=== PATIENT | male | born 1945 | race Caucasian/White ===

== ENCOUNTER 2020-08-12 13:53 | Emergency (ER) | payer BC, OTHER ==
[~2020-08-12] VITALS: Ht 177.8 cm; Wt 79.4 kg
--- NOTE | 2020-08-12 14:02 | NUR ---
came in for right thigh pain s/p R TKA 2 months ago, 10/10 pain scale, concerned of possible clot. to ER bed 4, hooked to monitor. changed to hosp gown. awaiting MD johnson
--- NOTE | 2020-08-12 14:04 | NUR ---
Dr Luu at bedside
[2020-08-12] MEDS ORDERED: IBUP-1957 PO (14:38)
[2020-08-12] MEDS ORDERED: HYDR-3980 MT (14:38)
--- NOTE | 2020-08-12 16:34 | NUR ---
Patient discharged to home in stable condition. Written and verbal after care instructions given. Patient verbalizes understanding of instruction.
[2020-08-12 16:39] VITALS: BP 154/69
== END 2020-08-12 16:35 | disposition home or self-care (01) ==
LOC: ER 13:58
DX: M79.651 Pain in right thigh (principal); Z96.651 Presence of right artificial knee joint
CPT/HCPCS: 73552; 93971-TC

== ENCOUNTER 2023-08-29 13:52 | Emergency (ER) | payer OTHER ==
[~2023-08-29] VITALS: Ht 177.8 cm; Wt 79.8 kg
[~2023-08-29 13:52] MED LIST: HYDR-3980 MT; IBUP-1957 PO
[2023-08-29] MEDS: IV NS 0.9% 1,000 ML BAG IV ONE ×2 (15:23→15:28)
[2023-08-29 15:29] LABS: BASOPHILS # (AUTO) 0.2 K/uL (0.0-0.2); BASOPHILS % (AUTO) 3.3 % (0.0-2.0); EOSINOPHILS # (AUTO) 0.1 K/uL (0.0-0.7); EOSINOPHILS % (AUTO) 1.7 % (0.0-6.0); HEMATOCRIT 41 % (39-51); HEMOGLOBIN 13.7 g/dL (13.5-17.5); LYMPHOCYTES # (AUTO) 1.4 K/uL (0.8-4.8); LYMPHOCYTES % (AUTO) 20.3 % (20.0-44.0); MEAN CORPUSCULAR HEMOGLOBIN 31 PG (26.0-33.0); MEAN CORPUSCULAR HGB CONC 33 g/dl (31.0-36.0); MEAN CORPUSCULAR VOLUME 92 fL (80-96); MONOCYTES # (AUTO) 0.5 K/uL (0.1-1.30); MONOCYTES % (AUTO) 6.9 % (2.0-12.0); NEUTROPHILS # (AUTO) 4.6 K/uL (1.8-8.9); NEUTROPHILS % (AUTO) 67.8 % (43.0-81.0); PLATELET COUNT (AUTO) 205 K/uL (150-450); RED BLOOD CELL COUNT(AUTO) 4.48 MIL/uL (4.5-6.0); RED CELL DISTRIBUTION WIDTH 13.6 % (11.5-15.0); WHITE BLOOD COUNT (AUTO) 6.7 K/uL (4.3-11.0)
[2023-08-29 15:45] LABS: CALCIUM, SERUM 8.8 mg/dL (8.5-10.1); CARBON DIOXIDE 27 mmol/L (21-32); CHLORIDE 102 mmol/L (98-107); GLUCOSE 154 mg/dL (74-106); POTASSIUM 3.8 mmol/L (3.5-5.1); SODIUM SERUM 136 mmol/L (136-145); UREA NITROGEN, BLOOD 20 mg/dL (7-18)
[2023-08-29 15:48] LABS: INR 1.02 (0.91-1.10); PARTIAL THROMBOPLASTIN TIME 23.6 SEC (24.3-34.3); PROTHROMBIN TIME 10.5 SECS (9.2-11.1)
[2023-08-29 15:50] LABS: ALANINE AMINOTRANSFERASE 27 U/L (12-78); ALBUMIN 3.4 g/dL (3.4-5.0); ALKALINE PHOSPHATASE 77 U/L (46-116); ASPARTATE AMINOTRANSFERASE 20 U/L (15-37); BILIRUBIN,DIRECT 0.1 mg/dL (0.0-0.2); BILIRUBIN,TOTAL 0.4 mg/dL (0.2-1.0); LIPASE 75 U/L (16-77)
[2023-08-29] MEDS ORDERED: IOHEXOL-300 100 ML VIAL IV ONE (15:54)
[2023-08-29] MEDS ORDERED: CT SWABBABLE VALVE TRANS SET 1 EA INFUS.SET MC ONE (15:55)
[2023-08-29] MEDS ORDERED: IV NS 0.9% 250 ML IV ONE (15:56)
[2023-08-29] MEDS ORDERED: POLY119P3 PO (17:40)
[2023-08-29 18:57] VITALS: BP 125/68; TEMP 98.5; O2SAT 97
== END 2023-08-29 18:58 | disposition home or self-care (01) ==
LOC: ER 13:52
DX: K59.00 Constipation, unspecified (principal); E86.0 Dehydration; Z79.899 Other long term (current) drug therapy
CPT/HCPCS: 99285; 74177; 96360; 93005; 85025; 80048; 83690; 80076; 36415; 85730; J7030; J7050; Q9967

== ENCOUNTER 2023-12-30 14:13 | Inpatient (IN) | payer MEDICARE, MEDICAID ==
[~2023-12-30] VITALS: Ht 177.8 cm; Wt 78.9 kg
[~2023-12-30 14:13] MED LIST changes: +POLY119P3 PO
[2023-12-30 15:27] LABS: BASOPHILS % (AUTO) 0.2 % (0.0-2.0); EOSINOPHILS % (AUTO) 0.2 % (0.0-6.0); HEMATOCRIT 29 % (39-51); HEMOGLOBIN 9.6 g/dL (13.5-17.5); LYMPHOCYTES % (AUTO) 9.1 % (20.0-44.0); MEAN CORPUSCULAR HEMOGLOBIN 28 PG (26.0-33.0); MEAN CORPUSCULAR HGB CONC 33 g/dl (31.0-36.0); MEAN CORPUSCULAR VOLUME 84 fL (80-96); MONOCYTES # (AUTO) 0.8 K/uL (0.1-1.30); MONOCYTES % (AUTO) 7.9 % (2.0-12.0); NEUTROPHILS # (AUTO) 8.8 K/uL (1.8-8.9); NEUTROPHILS % (AUTO) 82.6 % (43.0-81.0); PLATELET COUNT (AUTO) 230 K/uL (150-450); RED BLOOD CELL COUNT(AUTO) 3.41 MIL/uL (4.5-6.0); RED CELL DISTRIBUTION WIDTH 14.5 % (11.5-15.0); WHITE BLOOD COUNT (AUTO) 10.6 K/uL (4.3-11.0)
[2023-12-30 15:41] LABS: SERUM AMMONIA 20 umol/L (11-32)
[2023-12-30] MEDS ORDERED: IOHEXOL-350 100 ML VIAL IV ONE (15:41)
[2023-12-30] MEDS ORDERED: CT SWABBABLE VALVE TRANS SET 1 EA INFUS.SET MC ONE (15:41)
[2023-12-30 15:42] LABS: INR 1.18 (0.91-1.10); PARTIAL THROMBOPLASTIN TIME 27.1 SEC (24.3-34.3); PROTHROMBIN TIME 12.4 SECS (9.2-11.1)
[2023-12-30] MEDS ORDERED: IV NS 0.9% 250 ML IV ONE (15:42)
[2023-12-30 15:46] LABS: ALANINE AMINOTRANSFERASE 38 U/L (12-78); ALBUMIN 2.7 g/dL (3.4-5.0); ALCOHOL, BLOOD < 3 mg/dL (0-10); ALKALINE PHOSPHATASE 67 U/L (46-116); ASPARTATE AMINOTRANSFERASE 27 U/L (15-37); BILIRUBIN,DIRECT 0.2 mg/dL (0.0-0.2); BILIRUBIN,TOTAL 0.6 mg/dL (0.2-1.0); CALCIUM, SERUM 7.8 mg/dL (8.5-10.1); CARBON DIOXIDE 22 mmol/L (21-32); CREATININE 0.8 mg/dL (0.6-1.3); GLUCOSE 193 mg/dL (74-106); POTASSIUM 3.9 mmol/L (3.5-5.1); TOTAL PROTEIN, SERUM 5.9 g/dL (6.4-8.2); UREA NITROGEN, BLOOD 12 mg/dL (7-18)
[2023-12-30 15:47] LABS: SODIUM SERUM 119 mmol/L (136-145)
[2023-12-30 15:48] LABS: CHLORIDE 87 mmol/L (98-107); SALICYLATE 0.4 mg/dL (2.8-20.0)
[2023-12-30] MEDS ORDERED: TAMS-12 PO (15:57)
[2023-12-30] MEDS ORDERED: FLUO30CR50 TP (15:57)
[2023-12-30] MEDS ORDERED: LOSA50TA39 PO (15:57)
[2023-12-30] MEDS ORDERED: METF-442 PO (15:57)
[2023-12-30] MEDS ORDERED: ESCI10TA PO (15:57)
[2023-12-30] MEDS ORDERED: LORA-259 PO (15:57)
[2023-12-30] MEDS ORDERED: SITA25TA PO (15:57)
[2023-12-30] MEDS ORDERED: MEMA21CA2 PO (15:57)
[2023-12-30] MEDS ORDERED: DONE5TAB34 PO (15:57)
[2023-12-30] MEDS ORDERED: CLOP75TA15 PO (15:57)
[2023-12-30] MEDS: IV NS 0.9% 1,000 ML IV ONE (16:22)
[2023-12-30 17:34] LABS: AMPHETAMINE, URINE NEGATIVE (NEGATIVE); APPEARANCE,URINE Clear (CLEAR); BARBITURATE, URINE NEGATIVE (NEGATIVE); BENZODIAZEPINE, URINE NEGATIVE (NEGATIVE); BILIRUBIN,URINE Negative (NEGATIVE); BLOOD, URINE Negative Ery/uL (NEGATIVE); CANNABINOID, URINE NEGATIVE (NEGATIVE); COCCAINE, URINE NEGATIVE (NEGATIVE); COLOR,URINE YELLOW (YELLOW); KETONES,URINE Negative (NEGATIVE); LEUKOCYTE ESTERASE ,URINE Negative (NEGATIVE); NITRITE, URINE Negative (NEGATIVE); OPIATE, URINE NEGATIVE (NEGATIVE); PH,URINE 5.5 (5.0-8.0); PHENCYCLIDINE SCREEN,URINE NEGATIVE (NEGATIVE); PROTEIN,URINE Negative (NEGATIVE); UGLUCOSE 100 MG/DL mg/dL (NEGATIVE); UROBILINOGEN,URINE 0.2 EU/dL (0.2)
[2023-12-30] MEDS ORDERED: MAGNESIUM HYDROXIDE 30 ML UDC PO PRN (19:30)
[2023-12-30] MEDS ORDERED: ACETAMINOPHEN 325 MG TABLET PO PRN (19:30)
[2023-12-30] MEDS ORDERED: ONDANSETRON HCL/PF 4 MG/2 ML VIAL IVP PRN (19:30)
[2023-12-30] MEDS ORDERED: Z GUARD REMEDY 4 OZ OINT TP PRN (19:30)
[2023-12-30] MEDS ORDERED: LORAZEPAM 1 MG TABLET PO PRN (21:30)
[2023-12-30 21:31] LABS: ALANINE AMINOTRANSFERASE 42 U/L (12-78); ALBUMIN 2.7 g/dL (3.4-5.0); ALKALINE PHOSPHATASE 62 U/L (46-116); ASPARTATE AMINOTRANSFERASE 28 U/L (15-37); BILIRUBIN,TOTAL 0.5 mg/dL (0.2-1.0); CALCIUM, SERUM 7.9 mg/dL (8.5-10.1); CARBON DIOXIDE 29 mmol/L (21-32); CHLORIDE 94 mmol/L (98-107); CREATININE 0.8 mg/dL (0.6-1.3); GLUCOSE 177 mg/dL (74-106); POTASSIUM 4.2 mmol/L (3.5-5.1); SODIUM SERUM 127 mmol/L (136-145); UREA NITROGEN, BLOOD 13 mg/dL (7-18)
[2023-12-30 21:42] LABS: TOTAL PROTEIN, SERUM 6.1 g/dL (6.4-8.2)
[2023-12-30] MEDS: ENOXAPARIN SODIUM 40 MG/0.4 ML DISP.SYRIN SQ SCH (22:12)
[2023-12-31] VITALS: BP 139/67; TEMP 97.8; O2SAT 97
[2023-12-31 04:00] VITALS: BP 152/64; TEMP 97.9; O2SAT 98
[2023-12-31 08:00] VITALS: BP 159/71; TEMP 98.4; O2SAT 98
[2023-12-31 08:06] LABS: BASOPHILS % (AUTO) 0.1 % (0.0-2.0); EOSINOPHILS % (AUTO) 0.1 % (0.0-6.0); HEMATOCRIT 35 % (39-51); HEMOGLOBIN 11.7 g/dL (13.5-17.5); LYMPHOCYTES # (AUTO) 0.9 K/uL (0.8-4.8); LYMPHOCYTES % (AUTO) 10.7 % (20.0-44.0); MEAN CORPUSCULAR HEMOGLOBIN 28 PG (26.0-33.0); MEAN CORPUSCULAR HGB CONC 33 g/dl (31.0-36.0); MEAN CORPUSCULAR VOLUME 85 fL (80-96); MONOCYTES # (AUTO) 0.8 K/uL (0.1-1.30); MONOCYTES % (AUTO) 9.7 % (2.0-12.0); NEUTROPHILS # (AUTO) 6.3 K/uL (1.8-8.9); NEUTROPHILS % (AUTO) 79.4 % (43.0-81.0); PLATELET COUNT (AUTO) 299 K/uL (150-450); RED BLOOD CELL COUNT(AUTO) 4.16 MIL/uL (4.5-6.0); RED CELL DISTRIBUTION WIDTH 14.4 % (11.5-15.0)
[2023-12-31 08:10] LABS: CALCIUM, SERUM 8.9 mg/dL (8.5-10.1); CARBON DIOXIDE 25 mmol/L (21-32); CHLORIDE 101 mmol/L (98-107); CREATININE 0.9 mg/dL (0.6-1.3); GLUCOSE 183 mg/dL (74-106); MAGNESIUM 2.3 mg/dL (1.8-2.4); PHOSPHORUS 3.5 mg/dL (2.5-4.9); POTASSIUM 4.2 mmol/L (3.5-5.1); SODIUM SERUM 137 mmol/L (136-145); UREA NITROGEN, BLOOD 16 mg/dL (7-18)
[2023-12-31 08:41] VITALS: BP 159/71
[2023-12-31] MEDS: TAMSULOSIN 0.4 MG CAP.SR.24H PO SCH (08:41)
[2023-12-31] MEDS: CLOPIDOGREL BISULFATE 75 MG TABLET PO SCH (08:41)
[2023-12-31] MEDS: LOSARTAN POTASSIUM 50 MG TABLET PO SCH (08:41)
[2023-12-31] MEDS: MEMANTINE HCL 5 MG TABLET PO SCH (08:41)
[2023-12-31] MEDS: DONEPEZIL 5 MG TABLET PO SCH (08:42)
[2023-12-31] MEDS: LINAGLIPTIN 5 MG TABLET PO SCH (08:42)
== END 2023-12-31 12:39 | disposition home health service (06) | DRG 640 ==
LOC: ER 14:47 → TELE1 20:15 → MEDSG1 12-31 08:39
PROVIDERS: ADMIT Nurse Practitioner Family; ATTEND Nurse Practitioner Family
DX: E87.1 Hypo-osmolality and hyponatremia (principal); G93.41 Metabolic encephalopathy; E44.0 Moderate protein-calorie malnutrition; Z86.73 Personal history of transient ischemic attack (TIA), and cerebral infarction without residual deficits; D64.9 Anemia, unspecified; E86.1 Hypovolemia; Z79.84 Long term (current) use of oral hypoglycemic drugs; E88.09 Other disorders of plasma-protein metabolism, not elsewhere classified; Z87.891 Personal history of nicotine dependence; C61 Malignant neoplasm of prostate; F39 Unspecified mood [affective] disorder; Z96.651 Presence of right artificial knee joint; Z92.3 Personal history of irradiation; Z68.25 Body mass index [BMI] 25.0-25.9, adult
CPT/HCPCS: 36415; 70450-TC; 71045-TC; 80048-TC; 80053-TC; 80076-TC; 82140-TC; 83735-TC; 84100-TC; 84300-TC; 84443-TC; 84484-TC; 85025-TC; 85730-TC; 97110-TC; 97116-TC; 97530-TC; G0378; G0480; J1650; J7030; J7050; Q9967

== ENCOUNTER 2024-02-07 20:13 | Emergency (ER) | payer MEDICARE, MEDICAID ==
[~2024-02-07] VITALS: Ht 175.3 cm; Wt 74.8 kg
[~2024-02-07 20:13] MED LIST changes: +CLOP75TA15 PO; +DONE5TAB34 PO; +ESCI10TA PO; +FLUO30CR50 TP; -HYDR-3980 MT; -IBUP-1957 PO; +LORA-259 PO; +LOSA50TA39 PO; +MEMA21CA2 PO; +METF-442 PO; -POLY119P3 PO; +SITA25TA PO; +TAMS-12 PO
[2024-02-07 20:53] VITALS: BP 132/84; TEMP 98.5; O2SAT 99
== END 2024-02-07 21:55 | disposition left against medical advice (07) ==
LOC: ER 20:19
DX: S61.210A Laceration without foreign body of right index finger without damage to nail, initial encounter (principal); Z53.21 Procedure and treatment not carried out due to patient leaving prior to being seen by health care provider; Y92.89 Other specified places as the place of occurrence of the external cause

== ENCOUNTER 2024-04-19 15:00 | Inpatient (IN) | payer MEDICARE, OTHER ==
[~2024-04-19] VITALS: Ht 177.8 cm; Wt 78.5 kg
[2024-04-19 15:32] LABS: BASOPHILS % (AUTO) 0.6 % (0.0-2.0); EOSINOPHILS # (AUTO) 0.1 K/uL (0.0-0.7); EOSINOPHILS % (AUTO) 0.9 % (0.0-6.0); HEMATOCRIT 31 % (39-51); HEMOGLOBIN 9.6 g/dL (13.5-17.5); LYMPHOCYTES # (AUTO) 0.9 K/uL (0.8-4.8); LYMPHOCYTES % (AUTO) 14.2 % (20.0-44.0); MEAN CORPUSCULAR HEMOGLOBIN 24 PG (26.0-33.0); MEAN CORPUSCULAR HGB CONC 31 g/dl (31.0-36.0); MEAN CORPUSCULAR VOLUME 78 fL (80-96); MONOCYTES # (AUTO) 0.5 K/uL (0.1-1.30); MONOCYTES % (AUTO) 8.7 % (2.0-12.0); NEUTROPHILS # (AUTO) 4.5 K/uL (1.8-8.9); NEUTROPHILS % (AUTO) 75.6 % (43.0-81.0); PLATELET COUNT (AUTO) 221 K/uL (150-450); RED BLOOD CELL COUNT(AUTO) 3.95 MIL/uL (4.5-6.0); RED CELL DISTRIBUTION WIDTH 17.3 % (11.5-15.0)
[2024-04-19 15:40] LABS: CALCIUM, SERUM 8.7 mg/dL (8.5-10.1); CARBON DIOXIDE 26 mmol/L (21-32); CHLORIDE 102 mmol/L (98-107); GLUCOSE 265 mg/dL (74-106); SODIUM SERUM 135 mmol/L (136-145); UREA NITROGEN, BLOOD 12 mg/dL (7-18)
[2024-04-19] MEDS ORDERED: ATOR80TA PO (17:06)
[2024-04-19] MEDS ORDERED: Z GUARD REMEDY 4 OZ OINT TP PRN (19:30)
[2024-04-19] MEDS ORDERED: ACETAMINOPHEN 325 MG TABLET PO PRN (19:30)
[2024-04-19] MEDS ORDERED: MAGNESIUM HYDROXIDE 30 ML UDC PO PRN (19:30)
[2024-04-19 20:00] VITALS: BP 108/70; TEMP 97.5; O2SAT 100
[2024-04-19] MEDS ORDERED: INSULIN REGULAR, HUMAN 100 UNIT/ML 3 ML VIAL SQ SCH (22:00)
[2024-04-19] MEDS: BLOOD SUGAR DIAGNOSTIC 1 EACH STRIP IN SCH (22:19)
[2024-04-19] MEDS ORDERED: DEXTROSE 50%-WATER 50 ML DISP.SYRIN IV PRN (22:30)
[2024-04-19] MEDS: INSULIN REGULAR, HUMAN 100 UNIT/ML 3 ML VIAL SQ PRN (23:04)
[2024-04-20] VITALS: BP 159/59; TEMP 97.8; O2SAT 99
[2024-04-20 04:00] VITALS: BP 155/69; TEMP 98.1; O2SAT 99
[2024-04-20 07:21] LABS: CALCIUM, SERUM 8.6 mg/dL (8.5-10.1); CARBON DIOXIDE 27 mmol/L (21-32); CHLORIDE 104 mmol/L (98-107); GLUCOSE 160 mg/dL (74-106); MAGNESIUM 1.8 mg/dL (1.8-2.4); PHOSPHORUS 3.7 mg/dL (2.5-4.9); POTASSIUM 4.1 mmol/L (3.5-5.1); SODIUM SERUM 140 mmol/L (136-145); UREA NITROGEN, BLOOD 14 mg/dL (7-18)
[2024-04-20 07:23] LABS: BASOPHILS # (AUTO) 0.1 K/uL (0.0-0.2); BASOPHILS % (AUTO) 0.9 % (0.0-2.0); EOSINOPHILS # (AUTO) 0.2 K/uL (0.0-0.7); EOSINOPHILS % (AUTO) 2.7 % (0.0-6.0); HEMATOCRIT 31 % (39-51); HEMOGLOBIN 9.6 g/dL (13.5-17.5); LYMPHOCYTES # (AUTO) 1.1 K/uL (0.8-4.8); LYMPHOCYTES % (AUTO) 17.7 % (20.0-44.0); MEAN CORPUSCULAR HEMOGLOBIN 24 PG (26.0-33.0); MEAN CORPUSCULAR HGB CONC 31 g/dl (31.0-36.0); MEAN CORPUSCULAR VOLUME 77 fL (80-96); MONOCYTES # (AUTO) 0.7 K/uL (0.1-1.30); MONOCYTES % (AUTO) 11.4 % (2.0-12.0); NEUTROPHILS % (AUTO) 67.3 % (43.0-81.0); PLATELET COUNT (AUTO) 238 K/uL (150-450); RED BLOOD CELL COUNT(AUTO) 3.99 MIL/uL (4.5-6.0); RED CELL DISTRIBUTION WIDTH 17.7 % (11.5-15.0)
[2024-04-20] MEDS ORDERED: BLOOD SUGAR DIAGNOSTIC 1 EACH STRIP IN SCH (07:30)
[2024-04-20 07:53] LABS: CHOLESTEROL 157 mg/dL (<200); HDL CHOLESTEROL 55 mg/dL (40-60); LDL 87 mg/dL (0-99); TRIGLYCERIDES 97 mg/dL (30-150)
[2024-04-20 08:00] VITALS: BP 139/72; TEMP 98; O2SAT 98
[2024-04-20 08:24] LABS: ANISOCYTOSIS 1+
[2024-04-20] MEDS: PANTOPRAZOLE 40 MG TABLET.DR PO SCH (08:25)
[2024-04-20 10:16] LABS: FERRITIN 18 ng/mL (8-388)
[2024-04-20 10:39] LABS: IRON, SERUM 20 ug/dl (50-175); TOTAL IRON BINDING CAPACITY 389 ug/dl (250-450)
[2024-04-20] MEDS ORDERED: FLUOROURACIL TP PRN (11:30)
[2024-04-20] MEDS: LINAGLIPTIN 5 MG TABLET PO SCH (11:41)
[2024-04-20] MEDS: TAMSULOSIN 0.4 MG CAP.SR.24H PO SCH (11:41)
[2024-04-20] MEDS: CLOPIDOGREL BISULFATE 75 MG TABLET PO SCH (11:42)
[2024-04-20 12:00] VITALS: BP 136/71; TEMP 97.7; O2SAT 98
[2024-04-20] MEDS: LOSARTAN POTASSIUM 50 MG TABLET PO SCH (12:27)
[2024-04-20] MEDS: MEMANTINE HCL 5 MG TABLET PO SCH (12:41)
[2024-04-20] MEDS ORDERED: IOHEXOL-350 100 ML VIAL IV ONE (13:20)
[2024-04-20] MEDS ORDERED: CT SWABBABLE VALVE TRANS SET 1 EA INFUS.SET MC ONE (13:20)
[2024-04-20] MEDS ORDERED: IV NS 0.9% 250 ML IV ONE (13:22)
[2024-04-20] MEDS: SOD FERRIC GLUC 125 MG in IV NS 0.9% 100 ML IV SCH (13:50)
[2024-04-20] MEDS ORDERED: METOPROLOL TARTRATE INJ 5 MG/5 ML AMPUL IVP PRN (14:00)
[2024-04-20] MEDS: NITROGLYCERIN 0.4 MG/TAB BOTTLE SL ONE (14:14)
[2024-04-20] MEDS: ENOXAPARIN SODIUM 80 MG/0.8 ML DISP.SYRIN SQ SCH (15:00)
[2024-04-20 16:00] VITALS: BP 109/53; TEMP 97.6; O2SAT 99
[2024-04-20 20:00] VITALS: BP 103/54; TEMP 98.1; O2SAT 97
[2024-04-20] MEDS: ATORVASTATIN 40 MG TABLET PO SCH (21:21)
[2024-04-21] VITALS (13 sets, daily range): BP systolic 103–164; BP diastolic 54–89; TEMP 97.9–98.9; O2SAT 95–100
[2024-04-21 06:50] LABS: INR 1.09 (0.91-1.10); PROTHROMBIN TIME 11.5 SECS (9.2-11.1)
[2024-04-21 06:53] LABS: CALCIUM, SERUM 8.6 mg/dL (8.5-10.1); CARBON DIOXIDE 26 mmol/L (21-32); CHLORIDE 105 mmol/L (98-107); GLUCOSE 174 mg/dL (74-106); MAGNESIUM 1.9 mg/dL (1.8-2.4); PHOSPHORUS 4.4 mg/dL (2.5-4.9); POTASSIUM 4.2 mmol/L (3.5-5.1); SODIUM SERUM 140 mmol/L (136-145); UREA NITROGEN, BLOOD 18 mg/dL (7-18)
[2024-04-21 07:05] LABS: BASOPHILS % (AUTO) 0.7 % (0.0-2.0); EOSINOPHILS # (AUTO) 0.1 K/uL (0.0-0.7); EOSINOPHILS % (AUTO) 2.5 % (0.0-6.0); HEMATOCRIT 29 % (39-51); HEMOGLOBIN 9.2 g/dL (13.5-17.5); LYMPHOCYTES # (AUTO) 0.8 K/uL (0.8-4.8); LYMPHOCYTES % (AUTO) 14.2 % (20.0-44.0); MEAN CORPUSCULAR HEMOGLOBIN 25 PG (26.0-33.0); MEAN CORPUSCULAR HGB CONC 32 g/dl (31.0-36.0); MEAN CORPUSCULAR VOLUME 77 fL (80-96); MONOCYTES # (AUTO) 0.6 K/uL (0.1-1.30); MONOCYTES % (AUTO) 11.1 % (2.0-12.0); NEUTROPHILS # (AUTO) 4.2 K/uL (1.8-8.9); NEUTROPHILS % (AUTO) 71.5 % (43.0-81.0); PLATELET COUNT (AUTO) 219 K/uL (150-450); RED BLOOD CELL COUNT(AUTO) 3.74 MIL/uL (4.5-6.0); RED CELL DISTRIBUTION WIDTH 17.5 % (11.5-15.0); WHITE BLOOD COUNT (AUTO) 5.8 K/uL (4.3-11.0)
[2024-04-21] MEDS ORDERED: LIDOCAINE HCL/MPF 1% 30 ML VIAL IJ ONE (13:14)
[2024-04-21] MEDS ORDERED: IODIXANOL 150 ML IV ONE (13:14)
[2024-04-21] MEDS ORDERED: IV NS 0.9% 500 ML IV ONE (13:30)
[2024-04-21] MEDS ORDERED: IV SET PRIMARY PUMP SET 1 EA INFUS.SET MC ONE (13:30)
[2024-04-21] MEDS ORDERED: FENTANYL PF 100MCG/2ML AMPUL ONE (14:12)
[2024-04-21] MEDS ORDERED: MIDAZOLAM HCL 2 MG/2ML VIAL ONE (14:12)
[2024-04-21] MEDS ORDERED: HEPARIN SODIUM, PORCINE 1,000 UNIT/ML VIAL ONE (14:28)
[2024-04-21] MEDS ORDERED: HEPARIN SODIUM, PORCINE 5000 UNITS/1 ML VIAL ONE (14:28)
[2024-04-21] MEDS ORDERED: IODIXANOL 320MG/ML 50 ML IV ONE (14:29)
[2024-04-21] MEDS ORDERED: TICAGRELOR 90 MG TABLET ONE (14:39)
[2024-04-21] MEDS ORDERED: NTG 25 MG/D5W 250 ML BTL 25 MG/250 ML BTL IV ONE (15:03)
[2024-04-21] MEDS: HEPARIN SODIUM, PORCINE 5000 UNITS/1 ML VIAL IV ONE (15:41)
[2024-04-21] MEDS: ASPIRIN EC 81 MG TABLET.DR PO SCH (15:41)
[2024-04-21] MEDS: TICAGRELOR 90 MG TABLET PO SCH (17:25)
[2024-04-21] MEDS: ONDANSETRON HCL/PF 4 MG/2 ML VIAL IVP PRN (20:07)
[2024-04-21] MEDS: MAG HYDROX/AL HYDROX/SIMETH 30 ML UDC PO PRN (20:41)
[2024-04-21] MEDS ORDERED: MAG HYDROX/AL HYDROX/SIMETH 30 ML UDC PO PRN (21:00)
[2024-04-22] VITALS (13 sets, daily range): BP systolic 96–127; BP diastolic 39–68; TEMP 98–98.7; O2SAT 95–99
[2024-04-22 05:41] LABS: BASOPHILS % (AUTO) 0.4 % (0.0-2.0); EOSINOPHILS # (AUTO) 0.1 K/uL (0.0-0.7); EOSINOPHILS % (AUTO) 1.6 % (0.0-6.0); HEMATOCRIT 30 % (39-51); HEMOGLOBIN 9.5 g/dL (13.5-17.5); LYMPHOCYTES # (AUTO) 0.7 K/uL (0.8-4.8); LYMPHOCYTES % (AUTO) 9.1 % (20.0-44.0); MEAN CORPUSCULAR HEMOGLOBIN 24 PG (26.0-33.0); MEAN CORPUSCULAR HGB CONC 32 g/dl (31.0-36.0); MEAN CORPUSCULAR VOLUME 76 fL (80-96); MONOCYTES % (AUTO) 12.5 % (2.0-12.0); NEUTROPHILS # (AUTO) 6.2 K/uL (1.8-8.9); NEUTROPHILS % (AUTO) 76.4 % (43.0-81.0); PLATELET COUNT (AUTO) 219 K/uL (150-450); RED BLOOD CELL COUNT(AUTO) 3.93 MIL/uL (4.5-6.0); RED CELL DISTRIBUTION WIDTH 17.6 % (11.5-15.0); WHITE BLOOD COUNT (AUTO) 8.1 K/uL (4.3-11.0)
[2024-04-22 05:55] LABS: CALCIUM, SERUM 8.5 mg/dL (8.5-10.1); CARBON DIOXIDE 29 mmol/L (21-32); CHLORIDE 105 mmol/L (98-107); CREATININE 0.9 mg/dL (0.6-1.3); GLUCOSE 154 mg/dL (74-106); MAGNESIUM 2.2 mg/dL (1.8-2.4); PHOSPHORUS 3.6 mg/dL (2.5-4.9); SODIUM SERUM 139 mmol/L (136-145); UREA NITROGEN, BLOOD 12 mg/dL (7-18)
[2024-04-22] MEDS ORDERED: TICA90TA PO (09:33)
[2024-04-22] MEDS ORDERED: ASPI-1169 PO (09:33)
== END 2024-04-22 17:17 | disposition home or self-care (01) | DRG 322 ==
LOC: ER 15:03 → TELE1 18:31 → ICU 04-21 15:26 → TELE1 04-22 09:11
PROVIDERS: ADMIT Nurse Practitioner Family; ATTEND Nurse Practitioner Acute Care
PROC: 027034Z Dilation of Coronary Artery, One Artery with Drug-eluting Intraluminal Device, Percutaneous Approach (ICD-10-PCS; principal; 2024-04-21)
PROC: 4A023N7 Measurement of Cardiac Sampling and Pressure, Left Heart, Percutaneous Approach (ICD-10-PCS; 2024-04-21)
PROC: B211YZZ Fluoroscopy of Multiple Coronary Arteries using Other Contrast (ICD-10-PCS; 2024-04-21)
DX: I21.4 Non-ST elevation (NSTEMI) myocardial infarction (principal); E87.1 Hypo-osmolality and hyponatremia; D68.69 Other thrombophilia; I25.10 Atherosclerotic heart disease of native coronary artery without angina pectoris; R00.1 Bradycardia, unspecified; E11.65 Type 2 diabetes mellitus with hyperglycemia; D50.9 Iron deficiency anemia, unspecified; E66.9 Obesity, unspecified; E78.5 Hyperlipidemia, unspecified; F03.90 Unspecified dementia, unspecified severity, without behavioral disturbance, psychotic disturbance, mood disturbance, and anxiety; I10 Essential (primary) hypertension; Z87.891 Personal history of nicotine dependence; Z92.3 Personal history of irradiation; Z85.46 Personal history of malignant neoplasm of prostate; Z79.899 Other long term (current) drug therapy; Z79.84 Long term (current) use of oral hypoglycemic drugs; Z68.24 Body mass index [BMI] 24.0-24.9, adult; Z86.73 Personal history of transient ischemic attack (TIA), and cerebral infarction without residual deficits
CPT/HCPCS: 36415; 71045-TC; 75574; 80048-TC; 80061-TC; 82728-TC; 82962-TC; 83540-TC; 83735-TC; 84100-TC; 84484-TC; 85025-TC; 85347; 85730-TC; 86850-TC; 93307-TC; A4223; G0378; J1644; J1650; J1815; J2250; J2405; J2916; J3010; J3490; J7030; J7040; J7050; Q9967

== ENCOUNTER 2024-04-24 11:11 | Emergency (ER) | payer MEDICARE, MEDICAID ==
[~2024-04-24] VITALS: Ht 177.8 cm; Wt 78.0 kg
[~2024-04-24 11:11] MED LIST changes: +ASPI-1169 PO; +ATOR80TA PO; -CLOP75TA15 PO; +TICA90TA PO
[2024-04-24 12:44] LABS: BASOPHILS % (AUTO) 0.4 % (0.0-2.0); EOSINOPHILS % (AUTO) 0.7 % (0.0-6.0); HEMATOCRIT 28 % (39-51); LYMPHOCYTES # (AUTO) 0.4 K/uL (0.8-4.8); LYMPHOCYTES % (AUTO) 7.6 % (20.0-44.0); MEAN CORPUSCULAR HEMOGLOBIN 25 PG (26.0-33.0); MEAN CORPUSCULAR HGB CONC 32 g/dl (31.0-36.0); MEAN CORPUSCULAR VOLUME 78 fL (80-96); MONOCYTES # (AUTO) 0.7 K/uL (0.1-1.30); MONOCYTES % (AUTO) 12.5 % (2.0-12.0); NEUTROPHILS # (AUTO) 4.4 K/uL (1.8-8.9); NEUTROPHILS % (AUTO) 78.8 % (43.0-81.0); PLATELET COUNT (AUTO) 234 K/uL (150-450); RED BLOOD CELL COUNT(AUTO) 3.61 MIL/uL (4.5-6.0); RED CELL DISTRIBUTION WIDTH 17.9 % (11.5-15.0); WHITE BLOOD COUNT (AUTO) 5.6 K/uL (4.3-11.0)
[2024-04-24 13:06] LABS: CALCIUM, SERUM 8.4 mg/dL (8.5-10.1); CARBON DIOXIDE 25 mmol/L (21-32); CHLORIDE 100 mmol/L (98-107); CREATININE 1.3 mg/dL (0.6-1.3); GLUCOSE 282 mg/dL (74-106); POTASSIUM 3.9 mmol/L (3.5-5.1); SODIUM SERUM 132 mmol/L (136-145); UREA NITROGEN, BLOOD 21 mg/dL (7-18)
[2024-04-24 13:15] LABS: NT-PRO BNP 555 pg/mL (0-125)
[2024-04-24] MEDS ORDERED: CEPH500C2 PO (15:21)
[2024-04-24 15:41] VITALS: BP 128/54; TEMP 97.8; O2SAT 99
== END 2024-04-24 15:42 | disposition home or self-care (01) ==
LOC: ER 11:21
DX: I80.01 Phlebitis and thrombophlebitis of superficial vessels of right lower extremity (principal); I10 Essential (primary) hypertension; E11.9 Type 2 diabetes mellitus without complications; Z79.82 Long term (current) use of aspirin; Z79.02 Long term (current) use of antithrombotics/antiplatelets; Z79.84 Long term (current) use of oral hypoglycemic drugs; Z96.659 Presence of unspecified artificial knee joint; Z86.73 Personal history of transient ischemic attack (TIA), and cerebral infarction without residual deficits; Z79.899 Other long term (current) drug therapy
CPT/HCPCS: 36415; 71045-TC; 80048-TC; 83880; 84484-TC; 85025-TC; 93971-TC

== ENCOUNTER 2024-04-26 13:50 | Inpatient (IN) | payer MEDICARE, OTHER ==
[~2024-04-26] VITALS: Ht 177.8 cm; Wt 68.5 kg
[~2024-04-26 13:50] MED LIST changes: +CEPH500C2 PO
[2024-04-26 14:43] LABS: BASOPHILS % (AUTO) 0.5 % (0.0-2.0); EOSINOPHILS # (AUTO) 0.1 K/uL (0.0-0.7); EOSINOPHILS % (AUTO) 1.5 % (0.0-6.0); HEMATOCRIT 32 % (39-51); HEMOGLOBIN 10.1 g/dL (13.5-17.5); LYMPHOCYTES # (AUTO) 0.7 K/uL (0.8-4.8); LYMPHOCYTES % (AUTO) 10.7 % (20.0-44.0); MEAN CORPUSCULAR HEMOGLOBIN 25 PG (26.0-33.0); MEAN CORPUSCULAR HGB CONC 31 g/dl (31.0-36.0); MEAN CORPUSCULAR VOLUME 79 fL (80-96); MONOCYTES # (AUTO) 0.6 K/uL (0.1-1.30); MONOCYTES % (AUTO) 9.3 % (2.0-12.0); NEUTROPHILS # (AUTO) 5.2 K/uL (1.8-8.9); PLATELET COUNT (AUTO) 306 K/uL (150-450); RED BLOOD CELL COUNT(AUTO) 4.05 MIL/uL (4.5-6.0); RED CELL DISTRIBUTION WIDTH 18.3 % (11.5-15.0); WHITE BLOOD COUNT (AUTO) 6.7 K/uL (4.3-11.0)
[2024-04-26 15:05] LABS: LACTIC ACID 5.2 mmol/L (0.4-2.0)
[2024-04-26] MEDS ORDERED: CT SWABBABLE VALVE TRANS SET 1 EA INFUS.SET MC ONE (15:12)
[2024-04-26] MEDS ORDERED: IV NS 0.9% 250 ML IV ONE (15:12)
[2024-04-26] MEDS ORDERED: IOHEXOL-350 100 ML VIAL IV ONE (15:12)
[2024-04-26] MEDS: IV NS 0.9% 1,000 ML BAG IV ONE (15:18)
[2024-04-26 15:20] LABS: CALCIUM, SERUM 9.5 mg/dL (8.5-10.1); CARBON DIOXIDE 25 mmol/L (21-32); CHLORIDE 100 mmol/L (98-107); CREATININE 1.2 mg/dL (0.6-1.3); GLUCOSE 194 mg/dL (74-106); POTASSIUM 4.2 mmol/L (3.5-5.1); SODIUM SERUM 137 mmol/L (136-145); UREA NITROGEN, BLOOD 17 mg/dL (7-18)
[2024-04-26 15:31] LABS: BILIRUBIN,DIRECT 0.2 mg/dL (0.0-0.2); BILIRUBIN,TOTAL 0.6 mg/dL (0.2-1.0)
[2024-04-26 15:33] LABS: NT-PRO BNP 369 pg/mL (0-125)
[2024-04-26] MEDS ORDERED: ENOXAPARIN SODIUM 80 MG/0.8 ML DISP.SYRIN SQ ONE (16:55)
[2024-04-26] MEDS: ENOXAPARIN SODIUM 80 MG/0.8 ML DISP.SYRIN SQ ONE (16:57)
[2024-04-26] MEDS ORDERED: DEXTROSE 50%-WATER 50 ML DISP.SYRIN IV PRN (17:30)
[2024-04-26] MEDS ORDERED: ACETAMINOPHEN 325 MG TABLET PO PRN (17:30)
[2024-04-26] MEDS ORDERED: MORPHINE SULFATE INJ 2 MG/ML DISP.SYRIN IV PRN (17:30)
[2024-04-26] MEDS ORDERED: ONDANSETRON HCL/PF 4 MG/2 ML VIAL IVP PRN (17:30)
[2024-04-26] MEDS ORDERED: ALBUTEROL FS 2.5 MG/0.5 ML VIAL.NEB NEB PRN (17:30)
[2024-04-26] MEDS ORDERED: LORAZEPAM 1 MG TABLET PO PRN (17:30)
[2024-04-26 18:52] VITALS: BP 162/71; TEMP 98.5; O2SAT 92
[2024-04-26 19:01] LABS: LACTIC ACID REFLEX 3.6 mmol/L (0.4-1.9)
[2024-04-26 20:00] VITALS: BP 168/71; TEMP 97.7; O2SAT 99
[2024-04-26] MEDS: BLOOD SUGAR DIAGNOSTIC 1 EACH STRIP VI SCH (21:33)
[2024-04-26] MEDS: hydrALAZINE HCL IV 20 MG VIAL IV PRN (21:57)
[2024-04-26] MEDS: ATORVASTATIN 40 MG TABLET PO SCH (22:53)
[2024-04-26] MEDS: APIXABAN 5 MG TABLET PO SCH (22:54)
[2024-04-26] MEDS: *INSULIN REGULAR(HUMULIN R)HUM 100 UNIT/ML VIAL SQ PRN (23:36)
[2024-04-27] VITALS (7 sets, daily range): BP systolic 99–152; BP diastolic 52–68; TEMP 97.5–98.3; O2SAT 95–100
[2024-04-27] MEDS: TICAGRELOR 90 MG TABLET PO SCH (08:49)
[2024-04-27] MEDS: MEMANTINE HCL 5 MG TABLET PO SCH (08:50)
[2024-04-27] MEDS: ASPIRIN 81 MG TAB.CHEW PO SCH (08:51)
[2024-04-27] MEDS: DONEPEZIL 5 MG TABLET PO SCH (08:51)
[2024-04-27] MEDS: ESCITALOPRAM OXALATE (10 MG) 10 MG TABLET PO SCH (08:51)
[2024-04-27] MEDS: TAMSULOSIN 0.4 MG CAP.SR.24H PO SCH (08:51)
[2024-04-27] MEDS: LOSARTAN POTASSIUM 50 MG TABLET PO SCH (08:51)
[2024-04-28] VITALS: BP 115/61; TEMP 98.2; O2SAT 95
[2024-04-28 04:00] VITALS: BP 107/73; TEMP 98; O2SAT 96
[2024-04-28] MEDS: INSULIN REGULAR, HUMAN 100 UNIT/ML 3 ML VIAL SQ PRN (07:56)
[2024-04-28 07:59] LABS: BASOPHILS % (AUTO) 0.8 % (0.0-2.0); EOSINOPHILS # (AUTO) 0.3 K/uL (0.0-0.7); EOSINOPHILS % (AUTO) 4.6 % (0.0-6.0); HEMATOCRIT 23 % (39-51); HEMOGLOBIN 7.4 g/dL (13.5-17.5); LYMPHOCYTES % (AUTO) 18.7 % (20.0-44.0); MEAN CORPUSCULAR HEMOGLOBIN 25 PG (26.0-33.0); MEAN CORPUSCULAR HGB CONC 33 g/dl (31.0-36.0); MEAN CORPUSCULAR VOLUME 77 fL (80-96); MONOCYTES # (AUTO) 0.5 K/uL (0.1-1.30); NEUTROPHILS # (AUTO) 3.6 K/uL (1.8-8.9); NEUTROPHILS % (AUTO) 65.9 % (43.0-81.0); PLATELET COUNT (AUTO) 265 K/uL (150-450); RED BLOOD CELL COUNT(AUTO) 2.94 MIL/uL (4.5-6.0); RED CELL DISTRIBUTION WIDTH 18.7 % (11.5-15.0); WHITE BLOOD COUNT (AUTO) 5.5 K/uL (4.3-11.0)
[2024-04-28 08:00] VITALS: BP 121/67; TEMP 98.2; O2SAT 98
[2024-04-28 08:11] LABS: CALCIUM, SERUM 8.1 mg/dL (8.5-10.1); CARBON DIOXIDE 25 mmol/L (21-32); CHLORIDE 106 mmol/L (98-107); CREATININE 0.9 mg/dL (0.6-1.3); GLUCOSE 136 mg/dL (74-106); POTASSIUM 3.9 mmol/L (3.5-5.1); SODIUM SERUM 139 mmol/L (136-145); UREA NITROGEN, BLOOD 16 mg/dL (7-18)
[2024-04-28 12:00] VITALS: BP 103/54; TEMP 98.5; O2SAT 98
[2024-04-28 12:33] LABS: BASOPHILS # (AUTO) 0.1 K/uL (0.0-0.2); BASOPHILS % (AUTO) 0.9 % (0.0-2.0); EOSINOPHILS # (AUTO) 0.2 K/uL (0.0-0.7); EOSINOPHILS % (AUTO) 3.4 % (0.0-6.0); HEMATOCRIT 23 % (39-51); HEMOGLOBIN 7.3 g/dL (13.5-17.5); LYMPHOCYTES # (AUTO) 0.9 K/uL (0.8-4.8); LYMPHOCYTES % (AUTO) 16.5 % (20.0-44.0); MEAN CORPUSCULAR HEMOGLOBIN 25 PG (26.0-33.0); MEAN CORPUSCULAR HGB CONC 32 g/dl (31.0-36.0); MEAN CORPUSCULAR VOLUME 78 fL (80-96); MONOCYTES # (AUTO) 0.6 K/uL (0.1-1.30); MONOCYTES % (AUTO) 10.9 % (2.0-12.0); NEUTROPHILS # (AUTO) 3.7 K/uL (1.8-8.9); NEUTROPHILS % (AUTO) 68.3 % (43.0-81.0); PLATELET COUNT (AUTO) 259 K/uL (150-450); RED BLOOD CELL COUNT(AUTO) 2.89 MIL/uL (4.5-6.0); RED CELL DISTRIBUTION WIDTH 18.8 % (11.5-15.0); WHITE BLOOD COUNT (AUTO) 5.4 K/uL (4.3-11.0)
[2024-04-28 16:00] VITALS: BP 113/55; TEMP 97.9; O2SAT 99
[2024-04-28 20:00] VITALS: BP 115/54; TEMP 98.2; O2SAT 97
[2024-04-29] VITALS: BP 120/55; TEMP 98.3; O2SAT 96
[2024-04-29 04:00] VITALS: BP 118/56; TEMP 98; O2SAT 97
[2024-04-29 08:00] VITALS: BP 132/64; TEMP 98; O2SAT 97
[2024-04-29 08:04] LABS: CALCIUM, SERUM 8.6 mg/dL (8.5-10.1); CARBON DIOXIDE 26 mmol/L (21-32); CHLORIDE 104 mmol/L (98-107); GLUCOSE 141 mg/dL (74-106); MAGNESIUM 2.1 mg/dL (1.8-2.4); PHOSPHORUS 4.2 mg/dL (2.5-4.9); POTASSIUM 3.8 mmol/L (3.5-5.1); SODIUM SERUM 138 mmol/L (136-145); UREA NITROGEN, BLOOD 20 mg/dL (7-18)
[2024-04-29 09:34] LABS: BASOPHILS # (AUTO) 0.1 K/uL (0.0-0.2); BASOPHILS % (AUTO) 0.9 % (0.0-2.0); EOSINOPHILS # (AUTO) 0.3 K/uL (0.0-0.7); HEMATOCRIT 25 % (39-51); HEMOGLOBIN 8.3 g/dL (13.5-17.5); LYMPHOCYTES # (AUTO) 1.5 K/uL (0.8-4.8); LYMPHOCYTES % (AUTO) 23.6 % (20.0-44.0); MEAN CORPUSCULAR HEMOGLOBIN 25 PG (26.0-33.0); MEAN CORPUSCULAR HGB CONC 33 g/dl (31.0-36.0); MEAN CORPUSCULAR VOLUME 78 fL (80-96); MONOCYTES # (AUTO) 0.7 K/uL (0.1-1.30); MONOCYTES % (AUTO) 10.5 % (2.0-12.0); NEUTROPHILS # (AUTO) 3.9 K/uL (1.8-8.9); PLATELET COUNT (AUTO) 296 K/uL (150-450); RED BLOOD CELL COUNT(AUTO) 3.25 MIL/uL (4.5-6.0); RED CELL DISTRIBUTION WIDTH 18.8 % (11.5-15.0); WHITE BLOOD COUNT (AUTO) 6.3 K/uL (4.3-11.0)
[2024-04-29 12:00] VITALS: BP 105/60; TEMP 98.2; O2SAT 98
[2024-04-29 16:00] VITALS: BP 115/57; TEMP 97.6; O2SAT 98
[2024-04-29 17:59] LABS: OCCULT BLOOD STOOL POSITIVE (NEGATIVE)
[2024-04-29 20:00] VITALS: BP 132/68; TEMP 97.8; O2SAT 99
[2024-04-30] VITALS (11 sets, daily range): BP systolic 109–143; BP diastolic 57–70; TEMP 97.6–98.2; O2SAT 95–100
[2024-04-30 07:19] LABS: BASOPHILS # (AUTO) 0.1 K/uL (0.0-0.2); BASOPHILS % (AUTO) 0.9 % (0.0-2.0); EOSINOPHILS # (AUTO) 0.3 K/uL (0.0-0.7); EOSINOPHILS % (AUTO) 4.5 % (0.0-6.0); HEMATOCRIT 22 % (39-51); HEMOGLOBIN 7.4 g/dL (13.5-17.5); LYMPHOCYTES # (AUTO) 0.9 K/uL (0.8-4.8); LYMPHOCYTES % (AUTO) 14.6 % (20.0-44.0); MEAN CORPUSCULAR HEMOGLOBIN 26 PG (26.0-33.0); MEAN CORPUSCULAR HGB CONC 33 g/dl (31.0-36.0); MEAN CORPUSCULAR VOLUME 77 fL (80-96); MONOCYTES # (AUTO) 0.6 K/uL (0.1-1.30); MONOCYTES % (AUTO) 10.3 % (2.0-12.0); NEUTROPHILS # (AUTO) 4.2 K/uL (1.8-8.9); NEUTROPHILS % (AUTO) 69.7 % (43.0-81.0); PLATELET COUNT (AUTO) 294 K/uL (150-450); RED CELL DISTRIBUTION WIDTH 19.4 % (11.5-15.0)
[2024-04-30 07:28] LABS: CALCIUM, SERUM 8.6 mg/dL (8.5-10.1); CARBON DIOXIDE 26 mmol/L (21-32); CHLORIDE 106 mmol/L (98-107); CREATININE 0.9 mg/dL (0.6-1.3); GLUCOSE 146 mg/dL (74-106); POTASSIUM 3.7 mmol/L (3.5-5.1); SODIUM SERUM 139 mmol/L (136-145); UREA NITROGEN, BLOOD 16 mg/dL (7-18)
[2024-04-30] MEDS ORDERED: ANESTHESIA TRAY IN PYXIS 1 EA TRAY MC ONE (10:52)
[2024-04-30] MEDS: PANTOPRAZOLE 40 MG TABLET.DR PO SCH (16:15)
[2024-05-01] VITALS: BP 140/62; TEMP 98.1; O2SAT 98
[2024-05-01 04:00] VITALS: BP 133/59; TEMP 97.9; O2SAT 98
[2024-05-01 06:48] LABS: BASOPHILS # (AUTO) 0.1 K/uL (0.0-0.2); BASOPHILS % (AUTO) 1.1 % (0.0-2.0); EOSINOPHILS # (AUTO) 0.3 K/uL (0.0-0.7); EOSINOPHILS % (AUTO) 4.9 % (0.0-6.0); HEMATOCRIT 25 % (39-51); HEMOGLOBIN 8.2 g/dL (13.5-17.5); LYMPHOCYTES # (AUTO) 0.9 K/uL (0.8-4.8); LYMPHOCYTES % (AUTO) 16.8 % (20.0-44.0); MEAN CORPUSCULAR HEMOGLOBIN 26 PG (26.0-33.0); MEAN CORPUSCULAR HGB CONC 32 g/dl (31.0-36.0); MEAN CORPUSCULAR VOLUME 81 fL (80-96); MONOCYTES # (AUTO) 0.7 K/uL (0.1-1.30); MONOCYTES % (AUTO) 12.3 % (2.0-12.0); NEUTROPHILS # (AUTO) 3.6 K/uL (1.8-8.9); NEUTROPHILS % (AUTO) 64.9 % (43.0-81.0); PLATELET COUNT (AUTO) 282 K/uL (150-450); RED BLOOD CELL COUNT(AUTO) 3.13 MIL/uL (4.5-6.0); RED CELL DISTRIBUTION WIDTH 20.1 % (11.5-15.0); WHITE BLOOD COUNT (AUTO) 5.6 K/uL (4.3-11.0)
[2024-05-01 07:06] LABS: CALCIUM, SERUM 8.2 mg/dL (8.5-10.1); CARBON DIOXIDE 25 mmol/L (21-32); CHLORIDE 104 mmol/L (98-107); CREATININE 0.9 mg/dL (0.6-1.3); GLUCOSE 163 mg/dL (74-106); POTASSIUM 3.8 mmol/L (3.5-5.1); SODIUM SERUM 135 mmol/L (136-145); UREA NITROGEN, BLOOD 14 mg/dL (7-18)
[2024-05-01 08:00] VITALS: BP 152/70; TEMP 97.3; O2SAT 98
[2024-05-01] MEDS ORDERED: APIX5TAB PO (09:07)
[2024-05-01] MEDS ORDERED: PANT40TA49 PO (09:08)
[2024-05-01 12:00] VITALS: BP 133/70; TEMP 97.5; O2SAT 99
[2024-05-01 14:36] VITALS: BP 112/59; TEMP 98.1; O2SAT 98
== END 2024-05-01 14:37 | DRG 175 ==
LOC: ER 13:58 → TELE1 18:39
PROVIDERS: ADMIT Internal Medicine; ATTEND Internal Medicine
PROC: 30233N1 Transfusion of Nonautologous Red Blood Cells into Peripheral Vein, Percutaneous Approach (ICD-10-PCS; principal; 2024-04-30)
PROC: 0DB68ZX Excision of Stomach, Via Natural or Artificial Opening Endoscopic, Diagnostic (ICD-10-PCS; 2024-04-30)
DX: I26.99 Other pulmonary embolism without acute cor pulmonale (principal); I21.4 Non-ST elevation (NSTEMI) myocardial infarction; K26.4 Chronic or unspecified duodenal ulcer with hemorrhage; I50.32 Chronic diastolic (congestive) heart failure; D68.69 Other thrombophilia; E87.20 Acidosis, unspecified; N17.9 Acute kidney failure, unspecified; I13.0 Hypertensive heart and chronic kidney disease with heart failure and stage 1 through stage 4 chronic kidney disease, or unspecified chronic kidney disease; C61 Malignant neoplasm of prostate; D50.9 Iron deficiency anemia, unspecified; E11.22 Type 2 diabetes mellitus with diabetic chronic kidney disease; E78.5 Hyperlipidemia, unspecified; N18.31 Chronic kidney disease, stage 3a; Z79.01 Long term (current) use of anticoagulants; K29.70 Gastritis, unspecified, without bleeding; Z79.02 Long term (current) use of antithrombotics/antiplatelets; Z79.82 Long term (current) use of aspirin; Z79.84 Long term (current) use of oral hypoglycemic drugs; Z87.891 Personal history of nicotine dependence; Z92.3 Personal history of irradiation; Z95.5 Presence of coronary angioplasty implant and graft; I25.10 Atherosclerotic heart disease of native coronary artery without angina pectoris; F09 Unspecified mental disorder due to known physiological condition; Z85.46 Personal history of malignant neoplasm of prostate; Z86.73 Personal history of transient ischemic attack (TIA), and cerebral infarction without residual deficits
CPT/HCPCS: 36415; 71045-TC; 80048-TC; 82247-TC; 82248-TC; 82272-TC; 82962-TC; 83605-TC; 83735-TC; 83880; 84100-TC; 84484-TC; 85025-TC; 85378-TC; 86850-TC; 93970-TC; 97110-TC; 97116-TC; 97530-TC; 97535-TC; G0378; J0360; J1650; J1815; J3490; J7050; P9016; Q9967

== ENCOUNTER 2024-05-30 20:50 | Inpatient (IN) | payer MEDICARE, OTHER ==
[~2024-05-30] VITALS: Ht 177.8 cm; Wt 73.5 kg
[~2024-05-30 20:50] MED LIST changes: +APIX5TAB PO; -CEPH500C2 PO; +PANT40TA49 PO
[2024-05-30] MEDS ORDERED: PANTOPRAZOLE 40 MG VIAL ONE (21:34)
[2024-05-30] MEDS: PANTOPRAZOLE 80 MG in IV NS 0.9% 500 ML IV ONE (21:35)
[2024-05-30 21:55] LABS: BASOPHILS % (AUTO) 0.6 % (0.0-2.0); EOSINOPHILS % (AUTO) 0.4 % (0.0-6.0); LYMPHOCYTES # (AUTO) 0.5 K/uL (0.8-4.8); LYMPHOCYTES % (AUTO) 8.8 % (20.0-44.0); MEAN CORPUSCULAR HEMOGLOBIN 24 PG (26.0-33.0); MEAN CORPUSCULAR HGB CONC 32 g/dl (31.0-36.0); MEAN CORPUSCULAR VOLUME 76 fL (80-96); MONOCYTES # (AUTO) 0.5 K/uL (0.1-1.30); MONOCYTES % (AUTO) 9.4 % (2.0-12.0); NEUTROPHILS # (AUTO) 4.3 K/uL (1.8-8.9); NEUTROPHILS % (AUTO) 80.8 % (43.0-81.0); PLATELET COUNT (AUTO) 283 K/uL (150-450); RED BLOOD CELL COUNT(AUTO) 2.01 MIL/uL (4.5-6.0); RED CELL DISTRIBUTION WIDTH 19.4 % (11.5-15.0); WHITE BLOOD COUNT (AUTO) 5.3 K/uL (4.3-11.0)
[2024-05-30 22:05] LABS: CARBON DIOXIDE 27 mmol/L (21-32); CHLORIDE 104 mmol/L (98-107); CREATININE 1.1 mg/dL (0.6-1.3); GLUCOSE 177 mg/dL (74-106); POTASSIUM 3.7 mmol/L (3.5-5.1); SODIUM SERUM 138 mmol/L (136-145); UREA NITROGEN, BLOOD 14 mg/dL (7-18)
[2024-05-30 22:08] LABS: HEMOGLOBIN 4.9 g/dL (13.5-17.5)
[2024-05-30 22:09] LABS: HEMATOCRIT 15 % (39-51)
[2024-05-30 22:10] LABS: ALBUMIN 2.9 g/dL (3.4-5.0); BILIRUBIN,DIRECT 0.1 mg/dL (0.0-0.2); BILIRUBIN,TOTAL 0.6 mg/dL (0.2-1.0); TOTAL PROTEIN, SERUM 5.6 g/dL (6.4-8.2)
[2024-05-30 22:18] LABS: INR 1.18 (0.91-1.10); PROTHROMBIN TIME 12.4 SECS (9.2-11.1)
[2024-05-30 22:32] LABS: CALCIUM, SERUM 8.3 mg/dL (8.5-10.1)
[2024-05-30] MEDS ORDERED: ACETAMINOPHEN 325 MG TABLET PO PRN (23:30)
[2024-05-30] MEDS ORDERED: Z GUARD REMEDY 4 OZ OINT TP PRN (23:30)
[2024-05-30] MEDS ORDERED: MAG HYDROX/AL HYDROX/SIMETH 30 ML UDC PO PRN (23:30)
[2024-05-30] MEDS ORDERED: PANTOPRAZOLE 80 MG in IV NS 0.9% 500 ML IV PRN (23:30)
[2024-05-31] VITALS (22 sets, daily range): BP systolic 103–158; BP diastolic 44–76; TEMP 97.7–99.1; O2SAT 97–100
[2024-05-31] MEDS: IV NS 0.9% 1,000 ML IV PRN (01:42)
[2024-05-31 04:14] LABS: EOSINOPHILS % (MANUAL) 1 % (0-4); LYMPHOCYTES % (MANUAL) 10 % (16-48); MONOCYTES % (MANUAL) 13 % (0-11.0); NEUTROPHILS % (MANUAL) 76 (42-76); PLATELET ESTIMATE ADEQUATE
[2024-05-31 04:15] LABS: ANISOCYTOSIS 1+
[2024-05-31] MEDS ORDERED: FLUOROURACIL TP PRN (09:00)
[2024-05-31] MEDS: TICAGRELOR 90 MG TABLET PO SCH (09:00)
[2024-05-31] MEDS ORDERED: LORAZEPAM 1 MG TABLET PO PRN (09:00)
[2024-05-31] MEDS: LOSARTAN POTASSIUM 50 MG TABLET PO SCH (09:37)
[2024-05-31] MEDS: ESCITALOPRAM OXALATE (10 MG) 10 MG TABLET PO SCH (09:37)
[2024-05-31] MEDS: DONEPEZIL 5 MG TABLET PO SCH (09:37)
[2024-05-31] MEDS: TAMSULOSIN 0.4 MG CAP.SR.24H PO SCH (09:37)
[2024-05-31] MEDS ORDERED: ESCI20TA PO (10:03)
[2024-05-31] MEDS ORDERED: MEMA28CA5 PO (10:03)
[2024-05-31] MEDS ORDERED: SITA50TA PO (10:03)
[2024-05-31] MEDS ORDERED: CLOP75TA15 PO (10:03)
[2024-05-31 10:06] LABS: ALBUMIN 2.8 g/dL (3.4-5.0); BILIRUBIN,DIRECT 0.1 mg/dL (0.0-0.2); BILIRUBIN,TOTAL 0.4 mg/dL (0.2-1.0); CALCIUM, SERUM 8.2 mg/dL (8.5-10.1); CREATININE 0.9 mg/dL (0.6-1.3); MAGNESIUM 1.8 mg/dL (1.8-2.4); PHOSPHORUS 4.2 mg/dL (2.5-4.9); POTASSIUM 3.6 mmol/L (3.5-5.1); TOTAL PROTEIN, SERUM 5.5 g/dL (6.4-8.2)
[2024-05-31 10:19] LABS: BASOPHILS % (AUTO) 0.6 % (0.0-2.0); EOSINOPHILS # (AUTO) 0.1 K/uL (0.0-0.7); EOSINOPHILS % (AUTO) 1.4 % (0.0-6.0); LYMPHOCYTES # (AUTO) 0.7 K/uL (0.8-4.8); LYMPHOCYTES % (AUTO) 13.7 % (20.0-44.0); MEAN CORPUSCULAR HEMOGLOBIN 26 PG (26.0-33.0); MEAN CORPUSCULAR HGB CONC 34 g/dl (31.0-36.0); MEAN CORPUSCULAR VOLUME 78 fL (80-96); MONOCYTES # (AUTO) 0.7 K/uL (0.1-1.30); MONOCYTES % (AUTO) 13.6 % (2.0-12.0); NEUTROPHILS # (AUTO) 3.7 K/uL (1.8-8.9); NEUTROPHILS % (AUTO) 70.7 % (43.0-81.0); PLATELET COUNT (AUTO) 266 K/uL (150-450); RED BLOOD CELL COUNT(AUTO) 2.41 MIL/uL (4.5-6.0); RED CELL DISTRIBUTION WIDTH 20.6 % (11.5-15.0); WHITE BLOOD COUNT (AUTO) 5.2 K/uL (4.3-11.0)
[2024-05-31 10:33] LABS: HEMATOCRIT 19 % (39-51); HEMOGLOBIN 6.3 g/dL (13.5-17.5)
[2024-05-31 13:12] LABS: ANISOCYTOSIS 2+; LYMPHOCYTES % (MANUAL) 9 % (16-48); MONOCYTES % (MANUAL) 4 % (0-11.0); NEUTROPHILS % (MANUAL) 87 (42-76); PLATELET ESTIMATE ADEQUATE
[2024-05-31 13:13] LABS: OVALOCYTES 1+
[2024-05-31] MEDS ORDERED: PANTOPRAZOLE 80 MG in IV NS 0.9% 500 ML IV SCH (14:30)
[2024-05-31] MEDS: PANTOPRAZOLE 80 MG in IV NS 0.9% 500 ML IV SCH (15:27)
[2024-05-31] MEDS: METFORMIN 500 MG TABLET PO SCH (16:52)
[2024-05-31] MEDS: ATORVASTATIN 40 MG TABLET PO SCH (22:00)
[2024-05-31 23:13] LABS: HEMOGLOBIN 8.5 g/dL (13.5-17.5)
[2024-06-01] VITALS: BP 130/53; TEMP 98.1; O2SAT 97
[2024-06-01 04:00] VITALS: BP 129/73; TEMP 98.1; O2SAT 97
[2024-06-01 07:24] LABS: BASOPHILS % (AUTO) 0.7 % (0.0-2.0); EOSINOPHILS # (AUTO) 0.1 K/uL (0.0-0.7); EOSINOPHILS % (AUTO) 2.4 % (0.0-6.0); HEMATOCRIT 28 % (39-51); HEMOGLOBIN 9.3 g/dL (13.5-17.5); LYMPHOCYTES # (AUTO) 0.9 K/uL (0.8-4.8); LYMPHOCYTES % (AUTO) 17.9 % (20.0-44.0); MEAN CORPUSCULAR HEMOGLOBIN 26 PG (26.0-33.0); MEAN CORPUSCULAR HGB CONC 33 g/dl (31.0-36.0); MEAN CORPUSCULAR VOLUME 80 fL (80-96); MONOCYTES # (AUTO) 0.6 K/uL (0.1-1.30); MONOCYTES % (AUTO) 12.5 % (2.0-12.0); NEUTROPHILS # (AUTO) 3.3 K/uL (1.8-8.9); NEUTROPHILS % (AUTO) 66.5 % (43.0-81.0); PLATELET COUNT (AUTO) 229 K/uL (150-450); RED BLOOD CELL COUNT(AUTO) 3.54 MIL/uL (4.5-6.0); RED CELL DISTRIBUTION WIDTH 19.3 % (11.5-15.0); WHITE BLOOD COUNT (AUTO) 4.9 K/uL (4.3-11.0)
[2024-06-01 08:00] VITALS: BP 144/92; TEMP 98; O2SAT 98
[2024-06-01 08:08] LABS: CALCIUM, SERUM 8.5 mg/dL (8.5-10.1); CREATININE 0.9 mg/dL (0.6-1.3); MAGNESIUM 2.1 mg/dL (1.8-2.4); POTASSIUM 3.7 mmol/L (3.5-5.1)
[2024-06-01] MEDS: MEMANTINE HCL 5 MG TABLET PO SCH ×2 (08:23→22:09)
[2024-06-01] MEDS: LINAGLIPTIN 5 MG TABLET PO SCH (08:23)
[2024-06-01] MEDS ORDERED: ANESTHESIA TRAY IN PYXIS 1 EA TRAY MC ONE ×2 (09:27→14:14)
[2024-06-01 13:00] VITALS: BP 124/84; TEMP 98.1; O2SAT 100
[2024-06-01] MEDS: MAGNESIUM HYDROXIDE 30 ML UDC PO PRN (14:55)
[2024-06-01 16:00] VITALS: BP 146/59; TEMP 97.3; O2SAT 95
[2024-06-01] MEDS: PEG 3350/NA SULF,BICARB,CL/KCL 4,000 ML BOTTLE PO ONE (19:36)
[2024-06-01 20:00] VITALS: BP 153/96; TEMP 98.1; O2SAT 100
[2024-06-01 21:13] LABS: OCCULT BLOOD STOOL NEGATIVE (NEGATIVE)
[2024-06-02] VITALS: BP 148/77; TEMP 98.1; O2SAT 100
[2024-06-02 04:00] VITALS: BP 123/50; TEMP 99.3; O2SAT 95
[2024-06-02 08:00] VITALS: BP 125/75; TEMP 98.6; O2SAT 98
[2024-06-02 12:00] VITALS: BP 143/53; TEMP 98.2; O2SAT 95
[2024-06-02 16:00] VITALS: BP 139/61; TEMP 98.4; O2SAT 98
[2024-06-02] MEDS: BENZONATATE 100 MG CAPSULE PO PRN (16:57)
[2024-06-02 17:35] LABS: BASOPHILS % (AUTO) 0.8 % (0.0-2.0); EOSINOPHILS % (AUTO) 1.2 % (0.0-6.0); HEMATOCRIT 28 % (39-51); HEMOGLOBIN 9.1 g/dL (13.5-17.5); LYMPHOCYTES # (AUTO) 0.6 K/uL (0.8-4.8); LYMPHOCYTES % (AUTO) 15.6 % (20.0-44.0); MEAN CORPUSCULAR HEMOGLOBIN 27 PG (26.0-33.0); MEAN CORPUSCULAR HGB CONC 33 g/dl (31.0-36.0); MEAN CORPUSCULAR VOLUME 82 fL (80-96); MONOCYTES # (AUTO) 0.7 K/uL (0.1-1.30); MONOCYTES % (AUTO) 17.5 % (2.0-12.0); NEUTROPHILS # (AUTO) 2.6 K/uL (1.8-8.9); NEUTROPHILS % (AUTO) 64.9 % (43.0-81.0); PLATELET COUNT (AUTO) 218 K/uL (150-450); RED BLOOD CELL COUNT(AUTO) 3.42 MIL/uL (4.5-6.0); RED CELL DISTRIBUTION WIDTH 20.1 % (11.5-15.0)
[2024-06-02 17:45] LABS: CALCIUM, SERUM 8.1 mg/dL (8.5-10.1); CREATININE 0.9 mg/dL (0.6-1.3); POTASSIUM 3.5 mmol/L (3.5-5.1)
[2024-06-02 17:49] LABS: IRON, SERUM 14 ug/dl (50-175); TOTAL IRON BINDING CAPACITY 304 ug/dl (250-450)
[2024-06-02 18:13] LABS: FERRITIN 26 ng/mL (8-388)
[2024-06-02 18:37] LABS: FREE PSA < 0.06 ng/mL (0.00-45)
[2024-06-02 18:40] LABS: PROSTATE SPECIFIC ANTIGEN SCR < 0.13 ng/mL (0.00-4.00)
[2024-06-02 20:00] VITALS: BP 149/63; TEMP 98.6; O2SAT 97
[2024-06-02] MEDS: PANTOPRAZOLE 40 MG TABLET.DR PO SCH (21:07)
[2024-06-03] VITALS: BP 129/60; TEMP 98.8; O2SAT 95
[2024-06-03 04:00] VITALS: BP 133/61; TEMP 98.6; O2SAT 97
[2024-06-03 06:08] LABS: BASOPHILS % (AUTO) 0.6 % (0.0-2.0); EOSINOPHILS # (AUTO) 0.1 K/uL (0.0-0.7); EOSINOPHILS % (AUTO) 1.8 % (0.0-6.0); HEMATOCRIT 26 % (39-51); HEMOGLOBIN 8.5 g/dL (13.5-17.5); LYMPHOCYTES # (AUTO) 0.9 K/uL (0.8-4.8); MEAN CORPUSCULAR HEMOGLOBIN 26 PG (26.0-33.0); MEAN CORPUSCULAR HGB CONC 33 g/dl (31.0-36.0); MEAN CORPUSCULAR VOLUME 79 fL (80-96); MONOCYTES # (AUTO) 0.8 K/uL (0.1-1.30); MONOCYTES % (AUTO) 21.4 % (2.0-12.0); NEUTROPHILS # (AUTO) 1.8 K/uL (1.8-8.9); NEUTROPHILS % (AUTO) 50.2 % (43.0-81.0); PLATELET COUNT (AUTO) 209 K/uL (150-450); RED BLOOD CELL COUNT(AUTO) 3.23 MIL/uL (4.5-6.0); RED CELL DISTRIBUTION WIDTH 20.3 % (11.5-15.0); WHITE BLOOD COUNT (AUTO) 3.5 K/uL (4.3-11.0)
[2024-06-03 08:00] VITALS: BP 128/66; TEMP 98.3; O2SAT 96
[2024-06-03] MEDS ORDERED: IOHEXOL-300 100 ML VIAL IV ONE (09:34)
[2024-06-03 12:00] VITALS: BP 133/68; TEMP 97.4; O2SAT 98
[2024-06-03 12:17] LABS: ANISOCYTOSIS 1+; BASOPHILS % (MANUAL) 0 % (0.0-2.0); EOSINOPHILS % (MANUAL) 2 % (0-4); HYPOCHROMASIA 1+; LYMPHOCYTES % (MANUAL) 26 % (16-48); MONOCYTES % (MANUAL) 18 % (0-11.0); NEUTROPHILS % (MANUAL) 56 (42-76); OVALOCYTES 1+; PLATELET ESTIMATE ADEQUATE
[2024-06-03] MEDS ORDERED: PANT40TA2 PO (14:09)
[2024-06-04 10:10] LABS: FREE KAPPA LT CHAINS SERUM 22.6 mg/L (3.3-19.4); FREE LAMBDA LT CHAIN SERUM 15.5 mg/L (5.7-26.3); KAPPA/LAMBDA RATIO SERUM 1.46 (0.26-1.65)
[2024-06-07 07:06] LABS: *SPE ALBUMIN 2.7 g/dL (2.9-4.4); *SPE ALPHA-1-GLOBULIN 0.3 g/dL (0.0-0.4); *SPE ALPHA-2-GLOBULIN 0.8 g/dL (0.4-1.0); *SPE BETA GLOBULIN 0.9 g/dL (0.7-1.3); *SPE GLOBULIN, TOTAL 2.6 g/dL (2.2-3.9); *SPE M-SPIKE Not Observed g/dL (Not Observed); *SPE PROTEIN TOTAL 5.3 g/dL (6.0-8.5); *SPEGAMMA GLOBULIN 0.7 g/dL (0.4-1.8)
[2024-06-09 12:07] LABS: IMMUNOGLOBULIN A, SERUM 245 mg/dL (61-437); IMMUNOGLOBULIN G, SERUM 797 mg/dL (603-1613)
[2024-06-11 16:09] LABS: IMMUNOGLOBULIN M, SERUM 45 mg/dL (15-143)
== END 2024-06-03 14:35 | disposition home health service (06) | DRG 374 ==
LOC: ER 20:52 → TELE1 23:28 → TELE-TD 23:31 → TELE1 06-01 10:23
PROVIDERS: ADMIT Nurse Practitioner Family; ATTEND Nurse Practitioner Acute Care
PROC: 30233N1 Transfusion of Nonautologous Red Blood Cells into Peripheral Vein, Percutaneous Approach (ICD-10-PCS; principal; 2024-05-31)
PROC: 0DB68ZX Excision of Stomach, Via Natural or Artificial Opening Endoscopic, Diagnostic (ICD-10-PCS; 2024-06-01)
PROC: 0DBK8ZX Excision of Ascending Colon, Via Natural or Artificial Opening Endoscopic, Diagnostic (ICD-10-PCS; 2024-06-02)
DX: C18.8 Malignant neoplasm of overlapping sites of colon (principal); I21.A1 Myocardial infarction type 2; K29.71 Gastritis, unspecified, with bleeding; D68.59 Other primary thrombophilia; E46 Unspecified protein-calorie malnutrition; D64.9 Anemia, unspecified; H81.10 Benign paroxysmal vertigo, unspecified ear; E86.9 Volume depletion, unspecified; I25.10 Atherosclerotic heart disease of native coronary artery without angina pectoris; K57.30 Diverticulosis of large intestine without perforation or abscess without bleeding; E11.9 Type 2 diabetes mellitus without complications; E78.5 Hyperlipidemia, unspecified; E88.09 Other disorders of plasma-protein metabolism, not elsewhere classified; F41.9 Anxiety disorder, unspecified; I11.0 Hypertensive heart disease with heart failure; I50.9 Heart failure, unspecified; K64.8 Other hemorrhoids; R07.9 Chest pain, unspecified; Z68.23 Body mass index [BMI] 23.0-23.9, adult; Z79.84 Long term (current) use of oral hypoglycemic drugs; Z86.711 Personal history of pulmonary embolism; Z79.82 Long term (current) use of aspirin; Z85.46 Personal history of malignant neoplasm of prostate; Z87.891 Personal history of nicotine dependence; Z92.3 Personal history of irradiation; Z95.5 Presence of coronary angioplasty implant and graft; K26.9 Duodenal ulcer, unspecified as acute or chronic, without hemorrhage or perforation; Z86.73 Personal history of transient ischemic attack (TIA), and cerebral infarction without residual deficits
CPT/HCPCS: 36415; 71045-TC; 71260-TC; 80048-TC; 80076-TC; 82272-TC; 82378; 82607-TC; 82728-TC; 82784; 83540-TC; 83735-TC; 83880; 84100-TC; 84153-TC; 84154-TC; 84155; 84165; 84484-TC; 85025-TC; 85027-TC; 85730-TC; 86334; 86850-TC; 88305-TC; 88312-TC; 88313-TC; 97110-TC; 97112-TC; 97116-TC; 97530-TC; A4223; G0378; J2470; J2704; J3490; J7030; J7040; J7050; P9016; Q9967